=== PATIENT | female | born 1955 | race Caucasian/White ===

== ENCOUNTER 2023-06-07 22:18 | Emergency (ER) | payer MEDICAID ==
[~2023-06-07] VITALS: Ht 162.6 cm; Wt 73.0 kg
[~2023-06-07 22:18] MED LIST: ASPI-1497 MT; CLOP-31 MT
[2023-06-07 23:11] VITALS: BP 176/55; PULSE 71; RESP 16; TEMP 98.7; O2SAT 100
[2023-06-08 00:35] LABS: EOSINOPHILS % 5.8 % (0.0-5.0); HEMATOCRIT. 28.7 % (36.0-48.0); HEMOGLOBIN. 9.4 g/dL (12.0-16.0); LYMPHOCYTES % 33.2 % (20.0-50.0); MEAN CORPUSCULAR HEMOGLOBIN 30.7 pg (28.0-32.0); MEAN CORPUSCULAR HGB CONC 32.9 g/dL (31.0-37.0); MEAN CORPUSCULAR VOLUME 93.4 fL (81.0-99.0); MEAN PLATELET VOLUME 11.2 fl (7.4-10.4); MONOCYTES % 6.2 % (2.0-8.0); NEUTROPHILS % 52.8 % (40.0-76.0); PLATELET 216 x1000/uL (130-400); RED BLOOD CELL COUNT 3.07 mill/uL (4.2-5.4); RED CELL DISTRIBUTION WIDTH 15.6 % (11.6-14.6); WHITE BLOOD COUNT 7.6 x1000/uL (4.5-11.0)
[2023-06-08 01:01] LABS: ALANINE AMINOTRANSFERASE 26 IU/L (10-49); ALBUMIN 3.9 g/dL (3.2-4.8); ASPARTATE AMINOTRANSFERASE 32 IU/L (<34); BILIRUBIN TOTAL 0.4 mg/dL (0.1-1.0); CALCIUM 9.7 mg/dL (8.7-10.4); CARBON DIOXIDE 29 mEq/L (21-32); CHLORIDE 103 mEq/L (98-107); GLUCOSE 395 mg/dL (70-105); PROTEIN TOTAL 8.2 g/dL (6.0-8.3); SODIUM 136 mEq/L (136-145); UREA NITROGEN BLOOD 28 mg/dL (9-23)
[2023-06-08 01:03] LABS: CREATININE 1.4 mg/dL (0.6-1.0)
[2023-06-08 02:08] LABS: CREATINE KINASE 283 IU/L (34-145)
[2023-06-08 02:33] LABS: INR 0.9; PARTIAL THROMBOPLASTIN TIME 25.9 sec (23.4-31.0); PROTHROMBIN TIME 10.2 sec (9.6-11.0)
[2023-06-08] MEDS ORDERED: LINE600T14 MT (11:42)
== END 2023-06-08 03:22 | disposition home or self-care (01) ==
LOC: ER 22:18
DX: L97.519 Non-pressure chronic ulcer of other part of right foot with unspecified severity (principal); E11.9 Type 2 diabetes mellitus without complications
CPT/HCPCS: 36415; 80053; 80202; 82550; 85025; 99283

== ENCOUNTER 2023-10-11 21:26 | Emergency (ER) | payer MEDICAID ==
[~2023-10-11] VITALS: Ht 167.6 cm; Wt 75.0 kg
[~2023-10-11 21:26] MED LIST changes: +LINE600T14 MT
[2023-10-11 21:37] VITALS: O2SAT 99
[2023-10-11 23:54] VITALS: BP 174/70; PULSE 74; RESP 16; TEMP 98.5
== END 2023-10-11 23:56 | disposition home or self-care (01) ==
LOC: ER 21:26
DX: T82.898A Other specified complication of vascular prosthetic devices, implants and grafts, initial encounter (principal)
CPT/HCPCS: 99281

== ENCOUNTER 2025-03-02 08:16 | Emergency (ER) | payer MEDICAID ==
[~2025-03-02] VITALS: Ht 167.6 cm; Wt 68.0 kg
[2025-03-02 08:21] VITALS: O2SAT 100
[2025-03-02] MEDS ORDERED: TRAM50TA3 MT (08:33)
[2025-03-02] MEDS ORDERED: AMOX1TAB16 MT (08:33)
[2025-03-02] MEDS ORDERED: IBUP-2030 MT (08:33)
[2025-03-02] MEDS: HYDROCODONE/ACETAMINOPHEN 5/325MG TABLET PO ONE (08:39)
[2025-03-02] MEDS: KETOROLAC 30MG/ML VIAL IM ONE (08:39)
[2025-03-02 08:46] VITALS: BP 127/52; PULSE 71; RESP 16; TEMP 36.9; O2SAT 100
[2025-03-02] MEDS ORDERED: HYDR-4001 MT (23:03)
== END 2025-03-02 08:50 | disposition home or self-care (01) ==
LOC: ER 08:16
DX: K08.89 Other specified disorders of teeth and supporting structures (principal); E11.9 Type 2 diabetes mellitus without complications; Z79.82 Long term (current) use of aspirin; Z90.49 Acquired absence of other specified parts of digestive tract
CPT/HCPCS: 99283; 96372; J1885

== ENCOUNTER 2025-03-02 20:36 | Emergency (ER) | payer MEDICAID ==
[~2025-03-02] VITALS: Ht 165.1 cm; Wt 66.4 kg
[~2025-03-02 20:36] MED LIST changes: +AMOX1TAB16 MT; +IBUP-2030 MT; +TRAM50TA3 MT
[2025-03-02 21:16] VITALS: O2SAT 99
[2025-03-02] MEDS: KETOROLAC 15MG/ML VIAL IM ONE (22:08)
[2025-03-02] MEDS ORDERED: HYDR-4001 MT (23:03)
[2025-03-02 23:11] VITALS: BP 132/65; PULSE 71; RESP 16; TEMP 36.7; O2SAT 99
== END 2025-03-02 23:12 | disposition home or self-care (01) ==
LOC: ER 20:36
DX: K08.89 Other specified disorders of teeth and supporting structures (principal); E11.9 Type 2 diabetes mellitus without complications; H40.9 Unspecified glaucoma; Z79.82 Long term (current) use of aspirin; Z90.49 Acquired absence of other specified parts of digestive tract
CPT/HCPCS: 99283; 96372; J1885